=== PATIENT | female | born 1970 | race Caucasian/White ===

== ENCOUNTER → 2017-09-24 | Outpatient (CLI) | payer BC, OTHER ==
[~2017-09-24] MED LIST: CARI-316 PO; CHOL1TAB16 PO; CLON0.2T PO; CLON2TAB3 PO; MELA1TAB4 PO; MORP-110 PO; OXY5T PO; OXYC15TA77 PO; OXYC30TA77 PO; READI-CAT 2 (BARIUM SULF)(VANILLA SMOOTHIE) 450ML ONE
== END | disposition home or self-care (01) ==
LOC: Rad HDHVI 16:20
PROVIDERS: ATTEND Internal Medicine Cardiovascular Disease
DX: K43.9 Ventral hernia without obstruction or gangrene (principal); K59.00 Constipation, unspecified; Z90.49 Acquired absence of other specified parts of digestive tract
CPT/HCPCS: 74176

== ENCOUNTER 2017-10-30 10:47 | Inpatient (IN) | payer OTHER ==
[~2017-10-30] VITALS: Ht 162.6 cm; Wt 76.6 kg
[2017-10-30] MEDS ORDERED: SODIUM CHLORIDE 0.9% 500 ML IVB ONE (11:06)
[2017-10-30 11:31] LABS: Basophils # (auto) 0.1 uL; Basophils % (auto) 0.7 % (0.0-2.0); Eosinophils # (auto) 0 uL; Hematocrit 45.7 % (36.0-46.0); Hemoglobin 15.7 g/dL (12.2-16.2); Lymphocytes # (auto) 1.8 uL; Mean Corpuscular Hemoglobin 31.3 pg (28.0-32.0); Mean Corpuscular Hgb Conc. 34.3 g/dL (32.0-36.0); Mean Corpuscular Volume 91.1 fL (80.0-100.0); Monocytes # (auto) 0.9 uL; Neutrophils % (auto) 74.3 % (37.0-80.0); Nucleated Red Blood Cells % 0.1 %; Platelet Count (auto) 323 10^3/uL (140-450); Red Blood Cells 5.02 10^6/uL (4.0-5.20); White Blood Cell 10.8 10^3/uL (4.4-10.8)
[2017-10-30 12:00] LABS: Alanine Aminotransferase 29 U/L (13-56); Alkaline Phosphatase 57 U/L (45-117); Anion Gap 8 (5-15); Aspartate Aminotransferase 10 U/L (15-37); Bilirubin, Total 0.7 mg/dL (0.2-1.0); Blood Urea Nitrogen 9 mg/dL (7-18); Calcium 9.6 mg/dL (8.5-10.1); Carbon Dioxide 27 mmol/L (21-32); Chloride 104 mmol/L (98-107); GFR African American 96 mL/min; GFR Non-African American 79 mL/min; Glucose 99 mg/dL (74-106); Magnesium 2.7 mg/dL (1.6-2.6); Potassium 3.4 mmol/L (3.5-5.1); Sodium 139 mmol/L (136-145); Total Protein 8.1 g/dL (6.4-8.2)
[2017-10-30] MEDS ORDERED: ONDANSETRON ODT 4 MG TAB PO ONE (12:15)
[2017-10-30] MEDS ORDERED: CARI-316 PO (13:23)
[2017-10-30] MEDS ORDERED: CLON2TAB3 PO (13:23)
[2017-10-30] MEDS ORDERED: MORP-110 PO (13:24)
[2017-10-30 13:26] LABS: Alcohol, Urine < 3.0 mg/dL (0-5); Amphetamine Screen, Urine NEGATIVE (NEGATIVE); Barbiturate Scree,Urine NEGATIVE (NEGATIVE); Benzodiazephine Screen, Urine NEGATIVE (NEGATIVE); Cannabinoid Screen, Urine POSITIVE (NEGATIVE); Cocaine Screen, Urine NEGATIVE (NEGATIVE); Opiate Scree,Urine POSITIVE (NEGATIVE); Phencyclidine Screen, Urine NEGATIVE (NEGATIVE)
[2017-10-30 13:42] LABS: Urine Bacteria FEW /hpf (None Seen); Urine Blood Negative /uL (Negative); Urine Mucus FEW (None Seen); Urine Specific Gravity 1.019 (1.001-1.035); Urine WBC 1 /hpf (0 - 5)
[2017-10-30] MEDS ORDERED: ONDANSETRON HCL 4 MG/2 ML VIAL IV ONE (14:30)
[2017-10-30] MEDS ORDERED: PROMETHAZINE HCL 25 MG/ML 1ML IV PRN (16:15)
[2017-10-30] MEDS ORDERED: NITROGLYCERIN 0.4 MG SL TAB SL PRN (16:15)
[2017-10-30] MEDS ORDERED: PROCHLORPERAZINE EDISYLATE 5 MG/ML 2ML VIAL IV PRN (16:45)
[2017-10-30] MEDS: clonazePAM 0.5 MG TAB PO SCH ×2 (19:38→21:47)
[2017-10-30 21:10] VITALS: BP 119/81
[2017-10-30] MEDS: oxyCODONE ER 20 MG TAB PO SCH (21:47)
[2017-10-30 22:00] VITALS: BP 119/81
[2017-10-31] MEDS: PROCHLORPERAZINE EDISYLATE 5 MG/ML 2ML VIAL IV PRN ×4 (00:01→16:40)
[2017-10-31] MEDS ORDERED: CHOL1TAB16 PO (02:47)
[2017-10-31] MEDS ORDERED: OXYC15TA77 PO (02:47)
[2017-10-31] MEDS ORDERED: OXYC30TA77 PO (02:47)
[2017-10-31] MEDS ORDERED: CLON0.2T PO (02:47)
[2017-10-31] MEDS ORDERED: MELA1TAB4 PO (02:47)
[2017-10-31] MEDS ORDERED: OXY5T PO (02:47)
[2017-10-31 05:00] VITALS: BP 107/78
[2017-10-31] MEDS: clonazePAM 0.5 MG TAB PO SCH ×4 (05:24→21:41)
[2017-10-31] MEDS: oxyCODONE ER 20 MG TAB PO SCH ×2 (12:23→21:42)
[2017-10-31 12:31] VITALS: BP 156/93
[2017-10-31 16:23] VITALS: BP 122/78
[2017-10-31] MEDS: guaiFENesin-DM 100/10mg/5ml SYR PO PRN (20:02)
[2017-10-31 22:06] VITALS: BP 126/93
[2017-11-01] MEDS: PROCHLORPERAZINE EDISYLATE 5 MG/ML 2ML VIAL IV PRN ×5 (01:05→21:05)
[2017-11-01 01:28] VITALS: BP 126/93
[2017-11-01] MEDS: ALBUTEROL SULF 2.5 MG/0.5ML(0.5%) NEB SOLN NEB SCH ×5 (02:53→19:35)
[2017-11-01] MEDS: guaiFENesin-DM 100/10mg/5ml SYR PO PRN ×2 (02:54→16:53)
[2017-11-01 05:12] VITALS: BP 121/94
[2017-11-01] MEDS ORDERED: SODIUM CHLORIDE 0.9 % NEB SOLN 3ML NEB ONE (05:41)
[2017-11-01] MEDS: clonazePAM 0.5 MG TAB PO SCH ×4 (06:24→22:07)
[2017-11-01 08:37] VITALS: BP 116/81
[2017-11-01] MEDS: oxyCODONE ER 20 MG TAB PO SCH ×2 (09:32→22:07)
[2017-11-01 12:00] VITALS: BP 103/68
[2017-11-01 15:00] VITALS: BP_SYST 109; BP_SYST 123; BP_DIAS 69; BP_DIAS 71
[2017-11-01] MEDS: LEVOFLOXACIN 500 MG TAB PO SCH (16:53)
[2017-11-01 22:00] VITALS: BP 120/69
[2017-11-02] MEDS: PROCHLORPERAZINE EDISYLATE 5 MG/ML 2ML VIAL IV PRN ×4 (03:54→20:29)
[2017-11-02 05:00] VITALS: BP 102/76
[2017-11-02] MEDS: ALBUTEROL SULF 2.5 MG/0.5ML(0.5%) NEB SOLN NEB SCH ×4 (05:59→19:21)
[2017-11-02] MEDS: clonazePAM 0.5 MG TAB PO SCH ×4 (06:30→21:35)
[2017-11-02 09:00] VITALS: BP 112/77
[2017-11-02] MEDS: oxyCODONE ER 20 MG TAB PO SCH ×2 (09:36→21:35)
[2017-11-02] MEDS: LEVOFLOXACIN 500 MG TAB PO SCH (09:36)
[2017-11-02 13:00] VITALS: BP 121/80
[2017-11-02] MEDS: guaiFENesin-DM 100/10mg/5ml SYR PO PRN ×2 (15:44→21:27)
[2017-11-02 17:09] VITALS: BP 105/74
[2017-11-02 22:00] VITALS: BP 103/68
[2017-11-03] MEDS: PROCHLORPERAZINE EDISYLATE 5 MG/ML 2ML VIAL IV PRN ×6 (00:25→21:30)
[2017-11-03] MEDS: ALBUTEROL SULF 2.5 MG/0.5ML(0.5%) NEB SOLN NEB SCH ×4 (00:45→19:57)
[2017-11-03 05:00] VITALS: BP 109/68
[2017-11-03] MEDS: clonazePAM 0.5 MG TAB PO SCH ×4 (06:13→21:30)
[2017-11-03 08:00] VITALS: BP 113/79
[2017-11-03] MEDS: LEVOFLOXACIN 500 MG TAB PO SCH (10:13)
[2017-11-03] MEDS: oxyCODONE ER 20 MG TAB PO SCH ×2 (10:13→21:31)
[2017-11-03 12:00] VITALS: BP 115/83
[2017-11-03 16:00] VITALS: BP 110/75
[2017-11-03 22:00] VITALS: BP 112/73
[2017-11-04] MEDS: ALBUTEROL SULF 2.5 MG/0.5ML(0.5%) NEB SOLN NEB SCH ×4 (00:58→18:00)
[2017-11-04] MEDS: PROCHLORPERAZINE EDISYLATE 5 MG/ML 2ML VIAL IV PRN ×6 (01:55→23:48)
[2017-11-04 05:35] VITALS: BP 116/78
[2017-11-04] MEDS: clonazePAM 0.5 MG TAB PO SCH ×4 (05:43→21:59)
[2017-11-04 08:00] VITALS: BP 105/79
[2017-11-04 09:20] VITALS: BP 105/79
[2017-11-04] MEDS: oxyCODONE ER 20 MG TAB PO SCH ×2 (10:09→22:00)
[2017-11-04] MEDS: LEVOFLOXACIN 500 MG TAB PO SCH (10:09)
[2017-11-04 11:59] VITALS: BP 124/71
[2017-11-04] MEDS: ACETAMINOPHEN 325 MG TAB PO PRN (12:59)
[2017-11-04 16:43] VITALS: BP 105/71
[2017-11-04 22:00] VITALS: BP 108/60
[2017-11-04] MEDS: guaiFENesin-DM 100/10mg/5ml SYR PO PRN (23:05)
[2017-11-05] MEDS: ACETAMINOPHEN 325 MG TAB PO PRN (00:45)
[2017-11-05] MEDS: PROCHLORPERAZINE EDISYLATE 5 MG/ML 2ML VIAL IV PRN ×2 (04:07→09:56)
[2017-11-05] MEDS: guaiFENesin-DM 100/10mg/5ml SYR PO PRN (04:07)
[2017-11-05 05:00] VITALS: BP 108/68
[2017-11-05] MEDS: clonazePAM 0.5 MG TAB PO SCH ×2 (05:34→12:15)
[2017-11-05] MEDS: ALBUTEROL SULF 2.5 MG/0.5ML(0.5%) NEB SOLN NEB SCH ×2 (06:33)
[2017-11-05 08:00] VITALS: BP 118/87
[2017-11-05] MEDS: LEVOFLOXACIN 500 MG TAB PO SCH (09:56)
[2017-11-05] MEDS: oxyCODONE ER 20 MG TAB PO SCH (09:56)
[2017-11-05 12:00] VITALS: BP 136/90
== END 2017-11-05 13:00 | disposition home or self-care (01) | DRG 391 ==
LOC: EDUNIT# 10:47 → ER 10:47 → EDBD 10:47 → WEST WING 10:48 → TELE-WESTW 21:09
PROVIDERS: ADMIT Internal Medicine Cardiovascular Disease; ATTEND Internal Medicine Cardiovascular Disease
DX: K52.9 Noninfective gastroenteritis and colitis, unspecified (principal); G92 Toxic encephalopathy; F41.9 Anxiety disorder, unspecified; G89.29 Other chronic pain; M79.7 Fibromyalgia; R00.1 Bradycardia, unspecified; J40 Bronchitis, not specified as acute or chronic; Z90.710 Acquired absence of both cervix and uterus; Z90.49 Acquired absence of other specified parts of digestive tract
CPT/HCPCS: 36415; 70450; 71045; 73100; 74018; 80053; 80307; 80320; 81001; 83735; 84484; 85025; 93005; 94640; 94761; 96361; 96374; 96375; J2405; Q0162

== ENCOUNTER → 2017-11-21 | Outpatient (CLI) | payer OTHER ==
[~2017-11-21] MED LIST changes: -MORP-110 PO; -OXY5T PO; -READI-CAT 2 (BARIUM SULF)(VANILLA SMOOTHIE) 450ML ONE
== END | disposition home or self-care (01) ==
LOC: Rad HDHVI 12:38
PROVIDERS: ATTEND Internal Medicine Cardiovascular Disease
DX: R07.89 Other chest pain (principal)
CPT/HCPCS: 71046

== ENCOUNTER 2017-11-28 03:05 | Emergency (ER) | payer OTHER ==
[~2017-11-28] VITALS: Ht 162.6 cm; Wt 74.8 kg
[~2017-11-28 03:05] MED LIST changes: -KETOROLAC TROMETH 60MG/2ML VIAL IM ONE; -MVI in SODIUM CHLORIDE 0.9% 1,010 ML ONE; -MVI in SODIUM CHLORIDE 0.9% 500 ML IVB ONE; -ONDANSETRON HCL 4 MG/2 ML VIAL IM ONE; -ONDANSETRON HCL 4 MG/2 ML VIAL ONE
[2017-11-28 04:12] LABS: Basophils # (auto) 0 uL; Basophils % (auto) 0.5 % (0.0-2.0); Eosinophils # (auto) 0 uL; Eosinophils % (auto) 0.4 % (0.0-7.0); Hematocrit 43.1 % (36.0-46.0); Hemoglobin 14.7 g/dL (12.2-16.2); Lymphocytes # (auto) 2.1 uL; Lymphocytes % (auto) 24.1 % (10.0-50.0); Mean Corpuscular Hemoglobin 32.1 pg (28.0-32.0); Mean Corpuscular Hgb Conc. 34.1 g/dL (32.0-36.0); Mean Corpuscular Volume 94.3 fL (80.0-100.0); Monocytes # (auto) 0.6 uL; Monocytes % (auto) 7.1 % (0.0-12.0); Neutrophils % (auto) 67.9 % (37.0-80.0); Nucleated Red Blood Cells % 0.2 %; Platelet Count (auto) 260 10^3/uL (140-450); Red Blood Cells 4.57 10^6/uL (4.0-5.20); Red Cell Distribution Width 15.2 % (11.8-14.3); White Blood Cell 8.8 10^3/uL (4.4-10.8)
[2017-11-28 04:35] LABS: Chloride 108 mmol/L (98-107); Potassium 3.8 mmol/L (3.5-5.1); Sodium 140 mmol/L (136-145)
[2017-11-28 04:38] LABS: Albumin 3.7 g/dL (3.4-5.0); Anion Gap 8 (5-15); BUN/Creatinine Ratio 14.1; Blood Urea Nitrogen 9 mg/dL (7-18); Calcium 9.5 mg/dL (8.5-10.1); Carbon Dioxide 24 mmol/L (21-32); GFR African American 127 mL/min; GFR Non-African American 105 mL/min; Glucose 97 mg/dL (74-106)
[2017-11-28 04:43] LABS: Alanine Aminotransferase 25 U/L (13-56); Alkaline Phosphatase 83 U/L (45-117); Aspartate Aminotransferase 14 U/L (15-37); Bilirubin, Total 0.5 mg/dL (0.2-1.0); Total Protein 7.5 g/dL (6.4-8.2)
[2017-11-28 07:25] VITALS: BP 138/88
== END 2017-11-28 08:23 | disposition left against medical advice (07) ==
LOC: ER 03:07
DX: R05 Cough (principal); Z53.21 Procedure and treatment not carried out due to patient leaving prior to being seen by health care provider
CPT/HCPCS: 36415; 71045; 80053; 83880; 84484; 85025; 93005

== ENCOUNTER → 2017-11-28 | Outpatient (CLI) | payer OTHER ==
[~2017-11-28] MED LIST changes: +KETOROLAC TROMETH 60MG/2ML VIAL IM ONE; +MVI in SODIUM CHLORIDE 0.9% 1,010 ML ONE; +MVI in SODIUM CHLORIDE 0.9% 500 ML IVB ONE; +ONDANSETRON HCL 4 MG/2 ML VIAL IM ONE; +ONDANSETRON HCL 4 MG/2 ML VIAL ONE
[2017-11-28 12:10] VITALS: BP 116/80
== END | disposition home or self-care (01) ==
LOC: CHF HDHVI 09:00
PROVIDERS: ATTEND Internal Medicine Cardiovascular Disease
DX: E03.9 Hypothyroidism, unspecified (principal); E55.9 Vitamin D deficiency, unspecified; G40.909 Epilepsy, unspecified, not intractable, without status epilepticus; R53.83 Other fatigue; R10.9 Unspecified abdominal pain; M54.5 Low back pain; R11.0 Nausea
CPT/HCPCS: 36415; 82306; 84443; 96365; 96372; 96375; G0463; J1885; J2405; J3411; J3475

== ENCOUNTER → 2017-11-30 | Outpatient (CLI) | payer OTHER ==
[~2017-11-30] MED LIST changes: +METOCLOPRAMIDE HCL 5MG/ml INJ 2ml VIAL IV ONE; +METOCLOPRAMIDE HCL 5MG/ml INJ 2ml VIAL ONE; +MVI in SODIUM CHLORIDE 0.9% 1,010 ML ONE; +MVI in SODIUM CHLORIDE 0.9% 500 ML IVB ONE; +ONDANSETRON HCL 4 MG/2 ML VIAL IV ONE; +ONDANSETRON HCL 4 MG/2 ML VIAL ONE
[2017-11-30 12:05] VITALS: BP 123/84
[2017-11-30 14:30] VITALS: BP 133/89
== END | disposition home or self-care (01) ==
LOC: CHF HDHVI 12:15
PROVIDERS: ATTEND Internal Medicine Cardiovascular Disease
DX: E86.0 Dehydration (principal); E03.9 Hypothyroidism, unspecified; E55.9 Vitamin D deficiency, unspecified
CPT/HCPCS: 96365; 96366; 96375; G0463; J2405; J2765; J3411; J3475; 96374

== ENCOUNTER → 2018-08-16 | Outpatient (CLI) | payer OTHER ==
[~2018-08-16] MED LIST changes: -CARI-316 PO; +CARI350T22 PO; -CLON2TAB3 PO; +CLON2TAB6 PO; +KETOROLAC TROMETH 30 MG/ML 1ML VIAL IV ONE; +KETOROLAC TROMETH 60MG/2ML VIAL IM ONE; -METOCLOPRAMIDE HCL 5MG/ml INJ 2ml VIAL IV ONE; -METOCLOPRAMIDE HCL 5MG/ml INJ 2ml VIAL ONE; -MVI in SODIUM CHLORIDE 0.9% 1,010 ML ONE; -MVI in SODIUM CHLORIDE 0.9% 500 ML IVB ONE; +SODIUM CHLORIDE 0.9% 500 ML IV ONE; +cefTRIAXone 1GM/50ML D5W 50 ML IV SCH; +cefTRIAXone SOD 1,000 MG VL ONE
[2018-08-16 11:30] VITALS: BP 124/82
[2018-08-16 13:10] VITALS: BP 130/79
[2018-08-16 15:31] LABS: Urine Blood Negative /uL (Negative); Urine Specific Gravity 1.017 (1.001-1.035)
== END | disposition home or self-care (01) ==
LOC: CHF HDHVI 11:33
PROVIDERS: ATTEND Internal Medicine Cardiovascular Disease
DX: N39.0 Urinary tract infection, site not specified (principal); E86.0 Dehydration; M79.7 Fibromyalgia; R53.82 Chronic fatigue, unspecified; I10 Essential (primary) hypertension; E03.9 Hypothyroidism, unspecified; F41.9 Anxiety disorder, unspecified; G89.29 Other chronic pain; D64.9 Anemia, unspecified; Z90.710 Acquired absence of both cervix and uterus; Z90.49 Acquired absence of other specified parts of digestive tract
CPT/HCPCS: 81003; 82565; 87086; 96365; 96375; G0463; J0696; J1885; J2405; J7040; 96361; 96374

== ENCOUNTER → 2019-10-21 | Outpatient (CLI) | payer OTHER ==
[~2019-10-21] MED LIST changes: +CLON-707 PO; -CLON2TAB6 PO; -KETOROLAC TROMETH 30 MG/ML 1ML VIAL IV ONE; -KETOROLAC TROMETH 60MG/2ML VIAL IM ONE; -ONDANSETRON HCL 4 MG/2 ML VIAL IV ONE; -ONDANSETRON HCL 4 MG/2 ML VIAL ONE; -SODIUM CHLORIDE 0.9% 500 ML IV ONE; -cefTRIAXone 1GM/50ML D5W 50 ML IV SCH; -cefTRIAXone SOD 1,000 MG VL ONE
== END | disposition home or self-care (01) ==
LOC: Rad HDHVI 13:05
PROVIDERS: ATTEND Internal Medicine Cardiovascular Disease
DX: M79.672 Pain in left foot (principal); R07.89 Other chest pain; R06.02 Shortness of breath; R00.2 Palpitations; M79.7 Fibromyalgia; R53.82 Chronic fatigue, unspecified
CPT/HCPCS: 73630; 93306